=== PATIENT | female | born 1950 | race Caucasian/White ===

== ENCOUNTER → 2018-10-25 | Outpatient (CLI) | payer OTHER | LOC: M.ULTRA 09-29 10:16 | DX: Z12.31 Encounter for screening mammogram for malignant neoplasm of breast (principal); R93.7 Abnormal findings on diagnostic imaging of other parts of musculoskeletal system; Z87.891 Personal history of nicotine dependence; Z82.49 Family history of ischemic heart disease and other diseases of the circulatory system ==

== ENCOUNTER → 2018-11-06 | Outpatient (CLI) | payer OTHER | LOC: M.MRI 10-27 11:06 | DX: M48.061 Spinal stenosis, lumbar region without neurogenic claudication (principal); M51.26 Other intervertebral disc displacement, lumbar region; M89.38 Hypertrophy of bone, other site; M47.22 Other spondylosis with radiculopathy, cervical region; M25.78 Osteophyte, vertebrae ==

== ENCOUNTER → 2018-11-15 | Outpatient (CLI) | payer OTHER ==
[~2018-11-15] MED LIST: CYMBALTA30 MG PO; LIVALO2 MG PO; SINGULAIR 10 MG10 M1 PO
== END ==
LOC: M.PC 09:40
DX: M51.36 Other intervertebral disc degeneration, lumbar region (principal); M48.061 Spinal stenosis, lumbar region without neurogenic claudication; M50.322 Other cervical disc degeneration at C5-C6 level; M47.812 Spondylosis without myelopathy or radiculopathy, cervical region; J45.909 Unspecified asthma, uncomplicated; I10 Essential (primary) hypertension

== ENCOUNTER → 2019-10-16 | Outpatient (CLI) | payer OTHER | LOC: M.CT 10:00 | PROVIDERS: ATTEND Nurse Practitioner Family | DX: Z13.6 Encounter for screening for cardiovascular disorders (principal) ==

== ENCOUNTER → 2020-01-28 | Outpatient (CLI) | payer OTHER | LOC: M.RAD 12:04 | PROVIDERS: ATTEND Nurse Practitioner Family | DX: Z12.31 Encounter for screening mammogram for malignant neoplasm of breast (principal) ==

== ENCOUNTER → 2021-01-08 | Outpatient (CLI) | payer OTHER | LOC: M.ULTRA 10:14 | PROVIDERS: ATTEND Nurse Practitioner Family | DX: R19.09 Other intra-abdominal and pelvic swelling, mass and lump (principal) ==

== ENCOUNTER → 2021-01-22 | Outpatient (CLI) | payer OTHER | LOC: M.CT 12:46 | PROVIDERS: ATTEND Nurse Practitioner Family | DX: R19.03 Right lower quadrant abdominal swelling, mass and lump (principal); M25.78 Osteophyte, vertebrae; M48.061 Spinal stenosis, lumbar region without neurogenic claudication ==